=== PATIENT | female | born 1935 | race Two or more races ===

== ENCOUNTER 2018-08-15 23:35 | Inpatient (IN) | payer MEDICAID, MEDICARE ==
[~2018-08-15] VITALS: Ht 152.4 cm; Wt 62.1 kg
[~2018-08-15 23:35] MED LIST: AZIT250T12; CAPT25TA3; CAPT25TA3 PO; CIPRO; MECL-109; OMEP20CA10 PO; OMEP20CA4 PO; PRAV40TA58 PO; TOLT4CAP
[2018-08-16 04:05] LABS: BASOPHILS % 0.3 % (0.0-2.0); CHLORIDE 100 mEq/L (98-107); HEMOGLOBIN. 14.7 g/dL (12.0-16.0); LYMPHOCYTES % 9.5 % (20.0-50.0); MEAN CORPUSCULAR HEMOGLOBIN 30.4 pg (28.0-32.0); MEAN CORPUSCULAR VOLUME 91.2 fL (81.0-99.0); MEAN PLATELET VOLUME 8.6 fl (7.4-10.4); MONOCYTES % 4.2 % (2.0-8.0); PLATELET 298 x1000/uL (130-400); RED BLOOD CELL COUNT 4.82 mill/uL (4.2-5.4); RED CELL DISTRIBUTION WIDTH 13.7 % (11.6-14.6)
[2018-08-16] MEDS ORDERED: MAGNESIUM/ALUMINUM HYDROXIDE/SIMETHICONE 30ML UDC PO STA (04:06)
[2018-08-16] MEDS ORDERED: ONDANSETRON HCL 4MG/2ML INJ IV STA (04:06)
[2018-08-16 04:08] LABS: PARTIAL THROMBOPLASTIN TIME 28.7 sec (23.4-31.0); PROTHROMBIN TIME 10.3 sec (9.1-11.1)
[2018-08-16] MEDS ORDERED: SODIUM CHLORIDE 0.9% 1,000 ML IV ONE (04:08)
[2018-08-16 04:09] LABS: CLARITY URINE CLEAR (CLEAR); COLOR URINE YELLOW (YELLOW); KETONES URINE 2+ (NEGATIVE); LEUKOCYTE ESTERASE URINE 1+ (NEGATIVE); NITRITE URINE NEGATIVE (NEGATIVE); OCCULT BLOOD URINE 2+ (NEGATIVE); PH URINE 6.5 (4.5-8.0); PROTEIN URINE 2+ (NEGATIVE)
[2018-08-16] MEDS ORDERED: ACETAMINOPHEN 325MG TABLET PO ONE (04:15)
[2018-08-16] MEDS ORDERED: CEFTRIAXONE 1 G PREMIX 50 ML IV ONE (06:45)
[2018-08-16 08:00] VITALS: BP 171/81
[2018-08-16 09:58] VITALS: BP 136/70
[2018-08-16] MEDS ORDERED: ENAL10TA MT (10:13)
[2018-08-16] MEDS ORDERED: CLONIDINE 0.1MG TABLET PO PRN (11:45)
[2018-08-16] MEDS ORDERED: ACETAMINOPHEN 325MG TABLET PO PRN (11:45)
[2018-08-16 12:00] VITALS: BP 140/53
[2018-08-16] MEDS ORDERED: IPRATROPIUM/ALBUTEROL 0.5-3(2.5)MG/3ML NEB INH PRN (12:00)
[2018-08-16] MEDS: DEXT 5%/0.45% NACL 1000ML 1,000 ML IV SCH ×2 (12:02→21:19)
[2018-08-16] MEDS ORDERED: LEVOFLOXACIN 500MG PREMIX 100 ML IV NR (13:00)
[2018-08-16] MEDS: METRONIDAZOLE 500 MG PREMIX 100 ML IV SCH ×2 (13:12→21:30)
[2018-08-16] MEDS: ENOXAPARIN 40MG/0.4ML SYR SUBCUT SCH (13:15)
[2018-08-16] MEDS ORDERED: POTASSIUM CHLORIDE INJ 40 MEQ in DEXT 5% WATER 250 ML IV NR (14:00)
[2018-08-16] MEDS: ONDANSETRON HCL 4MG/2ML INJ IV PRN ×2 (14:17→21:22)
[2018-08-16 15:27] LABS: CREATINE KINASE 137 IU/L (26-192)
[2018-08-16 16:00] VITALS: BP 146/69
[2018-08-16] MEDS: MORPHINE SULFATE 4 MG/ML CPJ (NOT FOR IM USE) IV PRN ×2 (18:31→22:33)
[2018-08-16 20:00] VITALS: BP 144/86
[2018-08-16 23:21] LABS: CREATINE KINASE 127 IU/L (26-192); CREATINE KINASE MB FRACTION 3.7 ng/mL (0.5-3.6)
[2018-08-17] VITALS: BP 154/64
[2018-08-17 04:00] VITALS: BP 142/79
[2018-08-17] MEDS: DEXT 5%/0.45% NACL 1000ML 1,000 ML IV SCH ×2 (05:27→17:15)
[2018-08-17] MEDS: METRONIDAZOLE 500 MG PREMIX 100 ML IV SCH ×3 (05:27→21:47)
[2018-08-17] MEDS: MORPHINE SULFATE 4 MG/ML CPJ (NOT FOR IM USE) IV PRN (06:26)
[2018-08-17 07:28] LABS: BASOPHILS % 0.2 % (0.0-2.0); HEMATOCRIT. 42.1 % (36.0-48.0); HEMOGLOBIN. 13.9 g/dL (12.0-16.0); LYMPHOCYTES % 10.7 % (20.0-50.0); MEAN CORPUSCULAR HEMOGLOBIN 30.1 pg (28.0-32.0); MEAN PLATELET VOLUME 8.4 fl (7.4-10.4); MONOCYTES % 8.5 % (2.0-8.0); NEUTROPHILS % 80.6 % (40.0-76.0); PLATELET 284 x1000/uL (130-400); RED BLOOD CELL COUNT 4.63 mill/uL (4.2-5.4); RED CELL DISTRIBUTION WIDTH 13.2 % (11.6-14.6)
[2018-08-17 07:30] LABS: CHLORIDE 102 mEq/L (98-107)
[2018-08-17 07:38] LABS: LDL CHOLESTEROL 126 mg/dL (5-100)
[2018-08-17 07:39] LABS: HDL CHOLESTEROL 49 mg/dL (40-59); T4 FREE 1.03 ng/dL (0.76-1.46)
[2018-08-17 08:00] VITALS: BP 134/68
[2018-08-17] MEDS: ENOXAPARIN 40MG/0.4ML SYR SUBCUT SCH (08:22)
[2018-08-17] MEDS: ONDANSETRON HCL 4MG/2ML INJ IV PRN (08:24)
[2018-08-17 12:00] VITALS: BP 104/50
[2018-08-17] MEDS: LEVOFLOXACIN 250MG PREMIX 50 ML IV SCH (12:12)
[2018-08-17] MEDS ORDERED: SORBITOL 70% SOLN 30ML PO NR (12:45)
[2018-08-17] MEDS ORDERED: BISACODYL 10MG SUPP PR NR (12:45)
[2018-08-17] MEDS ORDERED: POTASSIUM CHLORIDE INJ 40 MEQ in DEXT 5% WATER 500 ML IV NR (14:00)
[2018-08-17 16:00] VITALS: BP 106/40
[2018-08-17 20:00] VITALS: BP 101/45
[2018-08-18] VITALS: BP 113/64
[2018-08-18 04:00] VITALS: BP 116/58
[2018-08-18] MEDS: METRONIDAZOLE 500 MG PREMIX 100 ML IV SCH ×3 (05:49→21:47)
[2018-08-18] MEDS: DEXT 5%/0.45% NACL 1000ML 1,000 ML IV SCH (05:49)
[2018-08-18 08:00] VITALS: BP 102/50
[2018-08-18 08:00] LABS: BASOPHILS % 0.2 % (0.0-2.0); EOSINOPHILS % 0.1 % (0.0-5.0); HEMATOCRIT. 39.7 % (36.0-48.0); HEMOGLOBIN. 13.3 g/dL (12.0-16.0); MEAN CORPUSCULAR HEMOGLOBIN 30.4 pg (28.0-32.0); MEAN CORPUSCULAR VOLUME 91.2 fL (81.0-99.0); MEAN PLATELET VOLUME 8.6 fl (7.4-10.4); MONOCYTES % 11.8 % (2.0-8.0); NEUTROPHILS % 74.9 % (40.0-76.0); PLATELET 267 x1000/uL (130-400); RED BLOOD CELL COUNT 4.35 mill/uL (4.2-5.4); RED CELL DISTRIBUTION WIDTH 13.3 % (11.6-14.6)
[2018-08-18] MEDS: ENOXAPARIN 40MG/0.4ML SYR SUBCUT SCH (10:21)
[2018-08-18] MEDS ORDERED: SORBITOL 70% SOLN 30ML PO NR (11:30)
[2018-08-18] MEDS ORDERED: BISACODYL 10MG SUPP PR NR (11:30)
[2018-08-18 12:00] VITALS: BP 113/97
[2018-08-18] MEDS: LEVOFLOXACIN 250MG PREMIX 50 ML IV SCH (12:48)
[2018-08-18] MEDS ORDERED: POTASSIUM CHLORIDE INJ 40 MEQ in DEXT 5% WATER 500 ML IV NR (13:00)
[2018-08-18] MEDS ORDERED: POTASSIUM CHLORIDE 20MEQ/PACKET PO NR (15:15)
[2018-08-18 16:00] VITALS: BP 101/64
[2018-08-18] MEDS ORDERED: NA PHOS,M-B/NA PHOS,DI-BA ENEMA 118ML PR NR (16:00)
[2018-08-18] MEDS ORDERED: DOCUSATE SODIUM 250MG CAPSULE PO SCH (16:00)
[2018-08-18] MEDS ORDERED: BISACODYL 5MG TABLET PO PRN (16:00)
[2018-08-18] MEDS: DOCUSATE SODIUM 250MG CAPSULE PO SCH (17:38)
[2018-08-18 20:00] VITALS: BP 105/51
[2018-08-19] VITALS: BP 123/70
[2018-08-19] MEDS: ONDANSETRON HCL 4MG/2ML INJ IV PRN (01:55)
[2018-08-19] MEDS: DEXT 5%/0.45% NACL 1000ML 1,000 ML IV SCH ×2 (02:04→09:59)
[2018-08-19] MEDS: MORPHINE SULFATE 4 MG/ML CPJ (NOT FOR IM USE) IV PRN (02:28)
[2018-08-19 04:00] VITALS: BP 123/54
[2018-08-19 04:56] LABS: CHLORIDE 107 mEq/L (98-107)
[2018-08-19] MEDS: METRONIDAZOLE 500 MG PREMIX 100 ML IV SCH ×2 (05:41→14:54)
[2018-08-19 05:44] LABS: BASOPHILS % 0.4 % (0.0-2.0); EOSINOPHILS % 0.2 % (0.0-5.0); HEMOGLOBIN. 12.8 g/dL (12.0-16.0); LYMPHOCYTES % 11.2 % (20.0-50.0); MEAN CORPUSCULAR HEMOGLOBIN 30.7 pg (28.0-32.0); MEAN CORPUSCULAR VOLUME 91.6 fL (81.0-99.0); MEAN PLATELET VOLUME 8.4 fl (7.4-10.4); MONOCYTES % 9.6 % (2.0-8.0); NEUTROPHILS % 78.6 % (40.0-76.0); PLATELET 252 x1000/uL (130-400); RED BLOOD CELL COUNT 4.15 mill/uL (4.2-5.4); RED CELL DISTRIBUTION WIDTH 13.5 % (11.6-14.6)
[2018-08-19 08:00] VITALS: BP 111/60
[2018-08-19] MEDS: DOCUSATE SODIUM 250MG CAPSULE PO SCH (09:00)
[2018-08-19] MEDS: ENOXAPARIN 40MG/0.4ML SYR SUBCUT SCH (09:32)
[2018-08-19] MEDS ORDERED: POTASSIUM CHLORIDE 20MEQ TABLET SR PO SCH (09:45)
[2018-08-19] MEDS ORDERED: PANTOPRAZOLE SODIUM 40 MG/VIAL IV SCH (10:00)
[2018-08-19] MEDS ORDERED: DOCUSATE SODIUM SUGAR FREE 100MG/10ML UDC NG SCH (10:00)
[2018-08-19] MEDS ORDERED: BISACODYL 10MG SUPP PR NR (11:15)
[2018-08-19 12:00] VITALS: BP 105/47
[2018-08-19] MEDS: LEVOFLOXACIN 250MG PREMIX 50 ML IV SCH (12:07)
[2018-08-19 15:23] VITALS: BP 105/47
[2018-08-19 16:00] VITALS: BP 107/69
[2018-08-20] MEDS ORDERED: PENICILLIN G BENZATHINE 2,400,000 UNITS/4ML SYR IM SCH (09:00)
== END 2018-08-19 16:35 | disposition home or self-care (01) | DRG 247 ==
LOC: ER 23:35 → 6EST 08-16 06:47 → EDBEDREQ 08-16 06:55 → ENRESERV 08-16 08:01
PROVIDERS: ADMIT Internal Medicine; ATTEND Internal Medicine
DX: K56.41 Fecal impaction (principal); R65.10 Systemic inflammatory response syndrome (SIRS) of non-infectious origin without acute organ dysfunction; K56.7 Ileus, unspecified; F03.90 Unspecified dementia, unspecified severity, without behavioral disturbance, psychotic disturbance, mood disturbance, and anxiety; N39.0 Urinary tract infection, site not specified; A53.9 Syphilis, unspecified; E78.5 Hyperlipidemia, unspecified; E87.6 Hypokalemia; I10 Essential (primary) hypertension; E78.00 Pure hypercholesterolemia, unspecified; K21.9 Gastro-esophageal reflux disease without esophagitis; Z79.899 Other long term (current) drug therapy
CPT/HCPCS: 36415; 71045; 74018; 74176; 80051; 80061; 82550; 82553; 83605; 83735; 83880; 84145; 84439; 84443; 84484; 87804; 93005; 96374; 96375; 99285; C1893; C9113; J0561; J0696; J1650; J1956; J2270; J2405; J3480; J3490; J7030; J7060